=== PATIENT | male | born 2000 | race Caucasian/White ===

== ENCOUNTER 2021-02-15 13:09 | Emergency (ER) | payer BC ==
[2021-02-15 13:47] VITALS: TEMP 98.6
[2021-02-15 15:44] LABS: Appearance,Urine Clear (Clear); Bilirubin,Urine Negative (Negative); Blood,Urine Negative (Negative); Color,Urine Yellow; Glucose,Urine (UA) Negative (Negative); Ketones,Urine Negative (Negative); Leukocyte Esterase,Urine Negative (Negative); Nitrite,Urine Negative (Negative); PH, Urine 5.5 (5.0-8.0); Protein,Urine Negative (Negative); Specific Gravity,Urine 1.022 (1.001-1.035); Urobilinogen,Urine <2.0 mg/dL (<2.0)
--- NOTE | 2021-02-15 17:26 | US ---
EXAMINATION TYPE: US bladder DATE OF EXAM: 02/15/2021 COMPARISON: NONE CLINICAL HISTORY: testicular pain. Generalized pelvic pain. EXAM MEASUREMENTS: Bladder: anechoic, moderately distended Color Doppler performed to assess ureteral jets. Bilateral Jets seen IMPRESSION: No evidence of a bladder mass. There are bilateral ureteral jets in the urinary bladder.
--- NOTE | 2021-02-15 17:29 | US ---
EXAMINATION TYPE: US scrotum with doppler. Grayscale and color Doppler Duplex imaging performed of arias sullivan scrotum. DATE OF EXAM: 02/15/2021 COMPARISON: NONE CLINICAL HISTORY: testicular pain. Patient states lifting something heavy and feeling a pull. No swe lling. EXAM MEASUREMENTS: TESTICLES: Right Testicle: 2.7 x 3.6 x 2.1 cm Left Testicle: 3.6 x 2.7 x 2.0 cm EPIDIDYMIS HEAD: Right Epididymis: 1.2 x 1.1 x 1.2 cm Left Epididymis: 1.1 x 1.1 x 0.7 cm Doppler performed to assess for testicular vascularity; good bilateral color flow and waveforms are s een. There is no evidence of testicular torsion. Presence of hydroceles: no Presence of varicoceles: no Right epididymal cyst = 0.6 x 0.6 x 0.6 cm. Left epididymal cyst = 0.9 x 0.7 x 0.6 cm IMPRESSION: There are bilateral epididymal cysts. No evidence of testicular torsion or mass. No free fluid.
--- NOTE | 2021-02-15 17:36 | ED ---
Abdominal Pain HPI - General Chief Complaint: Abdominal Pain Stated Complaint: Male Time Seen by Provider: 02/15/21 13:45 Source: patient Mode of arrival: ambulatory Limitations: no limitations - History of Present Illness Initial Comments: 20-year-old male presents to the emergency room with reported right-sided scrotal pain. Patient states he has been having some suprapubic and testicular pain over the past month. He has been following with his primary care doctor diagnosed him with a muscle strain. States he will occasionally take Motrin Ty lenol for pain. Patient was lifting a box today when he had sudden onset of right-sided testicular pain. He does not take any medications for her symptoms became into the emergency room for further evaluation. He denies concern for sexually transmitted infections. No fevers or chills. No urinary complaints to include dysuria, hematuria or voiding. Denies change in his bladder habits. No other alleviating, precipitating or modifying factors - Related Data Home Medications Medication Instructions Recorded Confirmed Atorvastatin [Lipitor] 40 mg PO HS 02/15/21 02/15/21 Fexofenadine/Pseudoephedrine 1 tab PO DAILY PRN 02/15/21 02/15/21 [Carrie-D 24 Hour Tablet] Lisinopril [Prinivil] 5 mg PO HS 02/15/21 02/15/21 Phentermine HCl [Adipex-P] 37.5 mg PO DAILY 02/15/21 02/15/21 Allergies Allergy/AdvReac Type Severity Reaction Status Date / Time Penicillins Allergy Unknown Verified 02/15/21 17:22 Childhood Review of Systems ROS Statement: Those systems with pertinent positive or pertinent negative responses have been documented in the HPI. ROS Other: All systems not noted in ROS Statement are negative. Past Medical History Past Medical History: Hyperlipidemia, Hypertension Past Surgical History: Tonsillectomy Past Psychological History: No Psychological Hx Reported Smoking Status: Never smoker Past Alcohol Use History: None Reported Past Drug Use History: None Reported General Exam Limitations: no limitations General appearance: alert, in no apparent distress Head exam: Present: atraumatic, normocephalic, normal inspection Eye exam: Present: normal appearance, PERRL, EOMI. Absent: scleral icterus, conjunctival injection, periorbital swelling ENT exam: Present: normal exam, mucous membranes moist Neck exam: Present: normal inspection. Absent: tenderness, meningismus, lymphadenopathy Respiratory exam: Present: normal lung sounds bilaterally. Absent: respiratory distress, wheezes, rales, rhonchi, stridor Cardiovascular Exam: Present: regular rate, normal rhythm, normal heart sounds. Absent: systolic murmur, diastolic murmur, rubs, gallop, clicks GI/Abdominal exam: Present: soft, normal bowel sounds. Absent: distended, tenderness, guarding, rebound, rigid exam: Present: normal inspection. Absent: testicular tenderness, urethral discharge, scrotal swelling, vertical testicular lie, circumcision Extremities exam: Present: normal inspection, full ROM, normal capillary refill. Absent: tenderness, pedal edema, joint swelling, calf tenderness Back exam: Present: normal inspection Neurological exam: Present: alert, oriented X3, CN II-XII intact Psychiatric exam: Present: normal affect, normal mood Skin exam: Present: warm, dry, intact, normal color. Absent: rash Course Vital Signs 02/15/21 02/15/21 13:44 17:55 Temperature 98.6 F Pulse Rate 78 76 Respiratory 18 20 Rate Blood Pressure 128/79 160/89 O2 Sat by Pulse 98 99 Oximetry Medical Decision Making - Medical Decision Making Upon arrival the patient is placed in room 16. A thorough history and physical exam was performed. He is offered something for pain control however he refuses. He does provide a urine sample. Patient is pain-free throughout my evaluation. He does have a testicular and bladder ultrasound performed which demonstrates bilateral epididymal cysts with no evidence of testicular torsion or mass. Results are discussed with the patient. He continues to remain pain- free. Patient will be discharged home at this time and is to follow-up with his primary care physician. May need referral to a urologist if his pain persists. Patient understood this. Instructed to take Motrin and Tylenol for pain control. Return for any new or worsening symptoms per patient was discharged with stable condition - Lab Data Lab Results 02/15/21 Range/Units 15:27 Urine Color Yellow Urine Appearance Clear (Clear) Urine pH 5.5 (5.0-8.0) Ur Specific Kelly 1.022 (1.001-1.035) Urine Protein Negative (Negative) Urine Glucose (UA) Negative (Negative) Urine Ketones Negative (Negative) Urine Blood Negative (Negative) Urine Nitrite Negative (Negative) Urine Bilirubin Negative (Negative) Urine Urobilinogen <2.0 (<2.0) mg/dL Ur Leukocyte Esterase Negative (Negative) Disposition Clinical Impression: Testicular pain, right, Epididymal cyst Disposition: HOME SELF-CARE Condition: Stable Instructions (If sedation given, give patient instructions): Testicle Pain (ED) Additional Instructions: Please follow up with your PCP in 2-4 days for re-evaluation. You may need to see a urologist. Take Motrin and tylenol alternating for pain. Return to the ED for any new or worsening symptoms. Is patient prescribed a controlled substance at d/c from ED?: No Referrals: De Olson DO [Primary Care Provider] - 1-2 days Time of Disposition: 17:35
[2021-02-15 17:57] VITALS: BP 160/89; PULSE 76; RESP 20
== END 2021-02-15 17:56 | disposition home or self-care (01) ==
LOC: EC 13:09
DX: N50.3 Cyst of epididymis (principal); I10 Essential (primary) hypertension; E78.5 Hyperlipidemia, unspecified; Z79.899 Other long term (current) drug therapy; Z88.0 Allergy status to penicillin
CPT/HCPCS: 76857; 76870; 81003; 93975; 99284

== ENCOUNTER 2022-09-23 09:32 | Emergency (ER) | payer BC ==
[2022-09-23 09:46] VITALS: PULSE 72; TEMP 97.9
--- NOTE | 2022-09-23 10:26 | ED ---
ENT HPI - General Chief complaint: ENT Stated complaint: Rt ear pain Time Seen by Provider: 09/23/22 09:57 Source: patient, RN notes reviewed, old records reviewed Mode of arrival: ambulatory Limitations: no limitations - History of Present Illness Initial comments: This is a well-appearing 22-year-old male presents ambulatory with complaints of right ear pain. Patient states that 2 weeks ago he felt a pop in his right ear. He went to urgent care on Monday and they prescribed him antibiotics for a left ear infection. He states that he was also given steroids which she still has 1 more day of each. He states that he has a ring in his right ear which prompted him to come to the emergency room its been keeping him up at night. Denies any discharge. No fevers. MD complaint: ear pain (right) -: days(s) (2) Location: R ear Severity scale (1-10): 4 Quality: constant, other (ringing) Consistency: constant Associated Symptoms: tinnitus - Related Data Home Medications Medication Instructions Recorded Confirmed Atorvastatin [Lipitor] 40 mg PO HS 02/15/21 02/15/21 Fexofenadine/Pseudoephedrine 1 tab PO DAILY PRN 02/15/21 02/15/21 [Carrie-D 24 Hour Tablet] Phentermine HCl [Adipex-P] 37.5 mg PO DAILY 02/15/21 02/15/21 lisinopriL [Prinivil] 5 mg PO HS 02/15/21 02/15/21 Allergies Allergy/AdvReac Type Severity Reaction Status Date / Time Penicillins Allergy Unknown Verified 09/23/22 09:46 Childhood Review of Systems ROS Statement: Those systems with pertinent positive or pertinent negative responses have been documented in the HPI. ROS Other: All systems not noted in ROS Statement are negative. Past Medical History Past Medical History: Hyperlipidemia, Hypertension History of Any Multi-Drug Resistant Organisms: None Reported Past Surgical History: Tonsillectomy Past Psychological History: No Psychological Hx Reported Smoking Status: Never smoker Past Alcohol Use History: None Reported Past Drug Use History: None Reported General Exam Limitations: no limitations General appearance: alert, in no apparent distress Head exam: Present: atraumatic Eye exam: Present: normal appearance. Absent: scleral icterus, conjunctival injection, periorbital swelling, periorbital tenderness ENT exam: Present: normal oropharynx, mucous membranes moist, TM's normal bilaterally, normal external ear exam Neck exam: Present: full ROM. Absent: tenderness, meningismus, lymphadenopathy Respiratory exam: Absent: respiratory distress, accessory muscle use Cardiovascular Exam: Present: regular rate GI/Abdominal exam: Present: soft Neurological exam: Present: alert, oriented X3 Psychiatric exam: Present: normal affect, normal mood Skin exam: Present: warm, dry, normal color. Absent: cyanosis, diaphoretic, pet echiae, pallor Course Vital Signs 09/23/22 09/23/22 09:43 10:37 Temperature 97.9 F Pulse Rate 72 Respiratory 18 14 Rate Blood Pressure 156/95 136/72 O2 Sat by Pulse 100 100 Oximetry Medical Decision Making - Medical Decision Making Tympanic membranes appear intact with no evidence of otitis or effusion. Patient is afebrile. No lymphadenopathy. No hearing loss. Denies sore throat. No headaches. Currently taking antibiotics and steroids prescribed at urgent care. Patient instructed to continue these medications and follow up with ENT for complaints of continued tinnitus. Patient is agreeable to this plan of care. Case discussed with Dr. Cornell. Was pt. sent in by a medical professional or institution (, PA, [employer], urgent care, hospital, or jail...) When possible be specific @ -[No] Did you speak to anyone other than the patient for history (EMS, parent, family, police, friend...)? What history was obtained from this source @ -[No] Did you review nursing and triage notes (agree or disagree)? Why? @ -[I reviewed and agree with nursing and triage notes] Were old charts reviewed (outside hosp., previous admission, EMS record, old EKG, old radiological studies, urgent care reports/EKG's, jail records)? Report findings @ -[No old charts were reviewed] Differential Diagnosis (chest pain, altered mental status, abdominal pain women, abdominal pain men, vaginal bleeding, weakness, fever, dyspnea, syncope, headache, dizziness, GI bleed, back pain, seizure, CVA, palpatations, mental health, musculoskeletal)? @ -Otitis media, zoster, TMJ, hypertension, salicylate toxicity, foreign body, head trauma, this is not a complete list EKG interpreted by me (3pts min.). @ -n/a X-rays interpreted by me (1pt min.). @ -[None done] CT interpreted by me (1pt min.). @ -[None done] U/S interpreted by me (1pt. min.). @ -[None done] What testing was considered but not performed or refused? (CT, X-rays, U/S, labs)? Why? @ -CT was considered however there is no evidence of abscess or lymphadenitis or cellulitis What meds were considered but not given or refused? Why? @ -Patient is currently taking antibiotics and steroids prescribed from urgent care Did you discuss the management of the patient with other professionals (professionals i.e. , PA, [employer], lab, RT, psych nurse, hospice social worker, wall washer, teacher, jail officer, major case detective)? Give summary @ -[No] Was smoking cessation discussed for >3mins.? @ -[No] Was critical care preformed (if so, how long)? @ -[No] Were there social determinants of health that impacted care today? How? (Homelessness, low income, unemployed, alcoholism, drug addiction, transportation, low edu. Level, literacy, decrease access to med. care, fpc, rehab)? @ -[No] Was there de-escalation of care discussed even if they declined (Discuss DNR or withdrawal of care, Hospice)? DNR status @ -[No] What co-morbidities impacted this encounter? (DM, HTN, Smoking, COPD, CAD, Cancer, CVA, ARF, Chemo, Hep., AIDS, mental health diagnosis, sleep apnea, morbid obesity)? @ -[None] Was patient admitted / discharged? Hospital course, mention meds given and route, prescriptions, significant lab abnormalities, going to OR and other pertinent info. @ -discharged Undiagnosed new problem with uncertain prognosis? @ -[No] Drug Therapy requiring intensive monitoring for toxicity (Heparin, Nitro, Insulin, Cardizem)? @ -[No] Were any procedures done? @ -[No] Diagnosis/symptom? @ -Ear pain Acute, or Chronic, or Acute on Chronic? @ -Acute Uncomplicated (without systemic symptoms) or Complicated (systemic symptoms)? @ -Uncomplicated Side effects of treatment? @ -[No] Exacerbation, Progression, or Severe Exacerbation? @ -[No] Poses a threat to life or bodily function? How? (Chest pain, [place], [place], pneumonia, PE, COPD, DKA, ARF, appy, cholecystitis, CVA, Diverticulitis, Homicidal, Suicidal, threat to staff... and all critical care pts) @ -[No] Disposition Clinical Impression: Ear pain, right Disposition: HOME SELF-CARE Condition: Good Instructions (If sedation given, give patient instructions): Earache (ED) Additional Instructions: Continue taking steroids and antibiotics as prescribed. Follow-up with ENT doctor on Monday. Tylenol as needed for any pain or discomfort. You can also try antihistamines like Zyrtec or Claritin Is patient prescribed a controlled substance at d/c from ED?: No Referrals: Basim Chinchilla MD [Primary Care Provider] - 1-2 days Time of Disposition: 10:17
[2022-09-23 10:38] VITALS: BP 136/72; RESP 14
== END 2022-09-23 10:38 | disposition home or self-care (01) ==
LOC: EC 09:32
DX: H92.01 Otalgia, right ear (principal); I10 Essential (primary) hypertension; E78.5 Hyperlipidemia, unspecified; Z88.0 Allergy status to penicillin; Z79.899 Other long term (current) drug therapy
CPT/HCPCS: 99282

== ENCOUNTER → 2022-11-24 | Outpatient (CLI) | payer BC ==
--- NOTE | 2022-11-25 08:20 | CT ---
EXAMINATION TYPE: CT brain wo/w con DATE OF EXAM: 11/24/2022 COMPARISON: None HISTORY: Rt sided ear pain, ringing and jaw pain. CT DLP: combined DLP 3720.8mGycm CONTRAST: CT scan of the head is performed without and with IV Contrast, patient injected with 100 mL of Isovue 300. Unenhanced followed by contrast enhanced CT of the brain is submitted for evaluation. The ventricles are midline. There is no evidence for intracranial hemorrhage or extra-axial collection. No mass e ffects are identified. Visualized bony calvarium is intact. Contrast is administered and no enhanci ng lesions are detected. No pathologic enhancement is identified. If symptoms persist consider MRI. IMPRESSION: Normal CT brain.
--- NOTE | 2022-11-25 08:28 | CT ---
EXAMINATION TYPE: CT soft tissue neck wo/w con DATE OF EXAM: 11/24/2022 COMPARISON: None HISTORY: Rt sided ear pain, ringing and jaw pain. CT DLP: Combined DLP 3720.8 mGycm CONTRAST: CT scan of the neck is performed without and with IV Contrast, patient injected with mL of Isovue [address] of the neck was performed from the skull base through the lung apices. AIRWAY: The supraglottic, glottic, and subglottic portions of the airway appear patent and free of mass. SALIVARY GLANDS: The submandibular and parotid glands are free of mass or inflammatory process. THYROID GLAND: No nodules or masses seen. LYMPH NODES: No adenopathy seen greater than 1cm. LUNG APICES: No nodule or mass is seen. OTHER: Vascular structures are patent. No significant degenerative change of the cervical spine. N o abscess seen. Mastoid air cells are well-aerated. IMPRESSION: 1. No significant abnormality to the patient's symptoms.
== END | disposition home or self-care (01) ==
LOC: RADCTMAIN 15:02
PROVIDERS: ATTEND Otolaryngology
DX: G44.89 Other headache syndrome (principal); H92.01 Otalgia, right ear; R68.84 Jaw pain
CPT/HCPCS: 70492; 70470; Q9967

== ENCOUNTER 2023-11-28 17:49 | Emergency (ER) | payer BC ==
[2023-11-28 18:30] VITALS: RESP 18
--- NOTE | 2023-11-28 18:37 | ED ---
Upper Extremity HPI - General Source: patient, RN notes reviewed Mode of arrival: ambulatory Limitations: no limitations <Narcisa Lehman - Last Filed: 11/28/23 18:36> - General Source: RN notes reviewed <Jania Talamantes - Last Filed: 11/28/23 21:25> - General Chief Complaint: Extremity Injury, Upper Stated Complaint: finger injury Time Seen by Provider: 11/28/23 18:00 - History of Present Illness Initial Comments: Lianet noteis a 23-year-old male presents emergency department chief complaint of a laceration to his proximal left third digit. Sensation that his finger with a hedge tremor approximately 30 minutes before emergency department arrival. States that his last tetanus vaccine was a few months ago. Denies paresthesias or loss of movement of the finger. (Narcisa Lehman) 23-year-old male presenting to the ER with chief complaint of laceration to left third digit. States he was sliced by a shingle trimmer 30 minutes prior to arrival in the ER. Denies numbness, tingling. Denies blunt injury to the finger. Last tetanus was 3 months ago. No other complaints at this time. (Jania Talamantes) - Related Data Home Medications Medication Instructions Recorded Confirmed Atorvastatin [Lipitor] 40 mg PO HS 02/15/21 02/15/21 Fexofenadine/Pseudoephedrine 1 tab PO DAILY PRN 02/15/21 02/15/21 [Carrie-D 24 Hour Tablet] Phentermine HCl [Adipex-P] 37.5 mg PO DAILY 02/15/21 02/15/21 lisinopriL [Prinivil] 5 mg PO HS 02/15/21 02/15/21 Previous Rx's Medication Instructions Recorded Sulfamethox-Tmp 800-160Mg [Bactrim 1 each PO Q12HR 5 Days #10 tab 11/28/23 Ds] Allergies Allergy/AdvReac Type Severity Reaction Status Date / Time Penicillins Allergy Unknown Verified 09/23/22 09:46 Childhood Review of Systems ROS Other: All systems not noted in ROS Statement are negative. <Narcisa Lehman - Last Filed: 11/28/23 18:36> ROS Other: All systems not noted in ROS Statement are negative. <Jania Talamantes - Last Filed: 11/28/23 21:25> ROS Statement: Those systems with pertinent positive or pertinent negative responses have been documented in the HPI. Past Medical History Past Medical History: Hyperlipidemia, Hypertension History of Any Multi-Drug Resistant Organisms: None Reported Past Surgical History: Tonsillectomy Past Psychological History: No Psychological Hx Reported Smoking Status: Never smoker Past Alcohol Use History: None Reported Past Drug Use History: None Reported <Narcisa Lehman - Last Filed: 11/28/23 18:36> General Exam Limitations: no limitations <Narcisa Lehman - Last Filed: 11/28/23 18:36> General appearance: alert, in no apparent distress Head exam: Present: atraumatic, normocephalic, normal inspection Eye exam: Present: normal appearance, PERRL, EOMI. Absent: scleral icterus, conjunctival injection, periorbital swelling ENT exam: Present: normal exam, mucous membranes moist Neck exam: Present: normal inspection. Absent: tenderness, meningismus, lymphadenopathy Respiratory exam: Present: normal lung sounds bilaterally. Absent: respiratory distress, wheezes, rales, rhonchi, stridor GI/Abdominal exam: Present: soft, normal bowel sounds. Absent: distended, tenderness, guarding, rebound, rigid Left Forearm Wrist exam: Present: normal inspection, full ROM. Absent: tenderness, swelling Hand Wrist exam: Present: full ROM, laceration (2 cm jagged superficial laceration on ventral aspect of proximal left third digit. Minimal active bleeding. No tenderness to palpation. Full range of motion and sensation. Cap refill less than 2 seconds.). Absent: normal inspection, tenderness, swelling <Jania Talamantes - Last Filed: 11/28/23 21:25> - General Exam Comments Initial Comments: Visual Physical Exam Vital signs reviewed General: Well-appearing, nontoxic, no acute distress. Head: Normocephalic, atraumatic Eyes: PERRLA, EOMI ENT: Airway patent Chest: Nonlabored breathing Skin: No visual rash, normal skin tone Neuro: Alert and oriented 3 Musculoskeletal: No gross abnormalities (Stieler,Narcisa) Course Vital Signs 11/28/23 11/28/23 18:27 21:05 Temperature 98.7 F 98.9 F Pulse Rate 74 66 Respiratory 18 18 Rate Blood Pressure 144/79 153/96 O2 Sat by Pulse 96 98 Oximetry Procedures - Laceration Laceration #1 Consent Obtained: verbal consent Indication: laceration Site: hand Description: flap Depth: simple, single layer Pre-repair: wound explored, irrigated extensively, deep structures intact Patient Tolerated Procedure: well, no complications <Jania Talamantes - Last Filed: 11/28/23 21:25> - Laceration Laceration #1 Additional Comments: Wound was thoroughly cleaned. Skin adhesive and steri strips applied. wound is well approximated. neurovasculalry intact s/p procedure (Jania Talamantes) Medical Decision Making <Narcisa Lehman - Last Filed: 11/28/23 18:36> <Jania Talamantes - Last Filed: 11/28/23 21:25> - Medical Decision Making I completed the quick note portion of this chart signed Narcisa Lehman PA-C (Narcisa Lehman) Was pt. sent in by a medical professional or institution ([facility], PUMP ASSEMBLER, urgent care, hospital, or senior care...) When possible be specific @ -No Did you speak to anyone other than the patient for history (EMS, parent, family, police, friend...)? What history was obtained from this source @ -No Did you review nursing and triage notes (agree or disagree)? Why? @ -I reviewed and agree with nursing and triage notes Were old charts reviewed (outside hosp., previous admission, EMS record, old EKG, old radiological studies, urgent care reports/EKG's, senior care records)? Report findings @ -No old charts were reviewed Differential Diagnosis (chest pain, altered mental status, abdominal pain women, abdominal pain men, vaginal bleeding, weakness, fever, dyspnea, syncope, headache, dizziness, GI bleed, back pain, seizure, CVA, palpatations, mental health, musculoskeletal)? @ -Differential Musculoskeletal Laceration, muscular strain, contusion, ligament sprain, fracture, arthritis, septic arthritis, bursitis, cellulitis, muscle spasm, nerve compression, DVT, arterial occlusion, herpes zoster, electrolyte abnormality, tumor.... This is not meant to be in all inclusive list EKG interpreted by me (3pts min.). @ -None X-rays interpreted by me (1pt min.). @ -None done CT interpreted by me (1pt min.). @ -None done U/S interpreted by me (1pt. min.). @ -None done What testing was considered but not performed or refused? (CT, X-rays, U/S, labs)? Why? @ -X-ray not performed due to laceration is superficial, no blunt injury, full range of motion and no tenderness to palpation What meds were considered but not given or refused? Why? @ -None Did you discuss the management of the patient with other professionals (professionals i.e. Dr., PA, PUMP ASSEMBLER, lab, RT, psych nurse, social media developer, terminal worker, teacher, tactical intelligence officer, case management director)? Give summary @ -No Was smoking cessation discussed for >3mins.? @ -No Was critical care preformed (if so, how long)? @ -No Were there social determinants of health that impacted care today? How? (Homelessness, low income, unemployed, alcoholism, drug addiction, transportation, low edu. Level, literacy, decrease access to med. care, residential, rehab)? @ -No Was there de-escalation of care discussed even if they declined (Discuss DNR or withdrawal of care, Hospice)? DNR status @ -No What co-morbidities impacted this encounter? (DM, HTN, Smoking, COPD, CAD, Cancer, CVA, ARF, Chemo, Hep., AIDS, mental health diagnosis, sleep apnea, morbid obesity)? @ -None Was patient admitted / discharged? Hospital course, mention meds given and route, prescriptions, significant lab abnormalities, going to OR and other pertinent info. @ -Patient was discharged. Patient was seen and evaluated for laceration third digit of left hand. Patient is neurovascularly intact. Wound is thoroughly irrigated and well-approximated with skin adhesive and Steri-Strips. Bactrim prescribed for bacterial prophylaxis. Wound care discussed in detail with patient. Strict return/alarm symptoms discussed with patient in detail and he shows understanding and agrees to plan. Case discussed with my attending Dr. Cornell. Patient discharged in stable condition. Undiagnosed new problem with uncertain prognosis? @ -No Drug Therapy requiring intensive monitoring for toxicity (Heparin, Nitro, Insulin, Cardizem)? @ -No Were any procedures done? @ -Wound was irrigated, skin adhesive and Steri-Strips applied for wound approximation Diagnosis/symptom? @ -Laceration of left third digit Acute, or Chronic, or Acute on Chronic? @ -Acute Uncomplicated (without systemic symptoms) or Complicated (systemic symptoms)? @ -Uncomplicated Side effects of treatment? @ -No Exacerbation, Progression, or Severe Exacerbation? @ -No Poses a threat to life or bodily function? How? (Chest pain, [place], [place], pneumonia, PE, COPD, DKA, ARF, appy, cholecystitis, CVA, Diverticulitis, Homicidal, Suicidal, threat to staff... and all critical care pts) @ -No (Jania Talamantes) Disposition <Narcisa Lehman - Last Filed: 11/28/23 18:36> Is patient prescribed a controlled substance at d/c from ED?: No Time of Disposition: 20:56 <Jania Talamantes - Last Filed: 11/28/23 21:25> Clinical Impression: Laceration of left hand Disposition: HOME SELF-CARE Condition: Stable Instructions (If sedation given, give patient instructions): Finger Laceration (ED) Additional Instructions: Please return to the Emergency Department if symptoms worsen or any other concerns. Prescriptions: Sulfamethox-Tmp 800-160Mg [Bactrim Ds] 1 each PO Q12HR 5 Days #10 tab Referrals: Basim Chinchilla MD [Primary Care Provider] - 1-2 days
[2023-11-28 21:07] VITALS: BP 153/96; PULSE 66; TEMP 98.9
== END 2023-11-28 21:06 | disposition home or self-care (01) ==
LOC: EC 17:49
DX: S61.213A Laceration without foreign body of left middle finger without damage to nail, initial encounter (principal); Z88.0 Allergy status to penicillin; W29.3XXA Contact with powered garden and outdoor hand tools and machinery, initial encounter
CPT/HCPCS: 12001; 99283

== ENCOUNTER 2024-09-07 18:11 | Emergency (ER) | payer BC ==
[2024-09-07 18:39] VITALS: RESP 17
--- NOTE | 2024-09-07 19:42 | ED ---
Back Pain HPI - General Chief Complaint: Back Pain/Injury Stated Complaint: Low back pain Time Seen by Provider: 09/07/24 19:28 Source: patient, RN notes reviewed Limitations: no limitations - History of Present Illness Initial Comments: This is a 24-year-old male presenting with lower back pain (6/10) since 1300 today. Patient states he was picking up an item when his back "seized" with ongoing cramping that worsens with movement (9/10). Denies radiculopathy, paresthesia, saddle paresthesia, urinary incontinence/retention. Endorses use of Tylenol at 1400 with minimal relief. Denies direct trauma or fall. Denies significant history of lower back pain/issues. MD Complaint: back pain, back injury Time: 13:00 Similar Symptoms Previously: No Place: home Radiation: none Severity scale (1-10): 9 Consistency: constant Improves With: immobilization Worsens With: movement, walking Context: bending Associated Symptoms: denies other symptoms Treatments Prior to Arrival: acetaminophen - Related Data Home Medications Medication Instructions Recorded Confirmed Atorvastatin [Lipitor] 40 mg PO HS 02/15/21 02/15/21 Fexofenadine/Pseudoephedrine 1 tab PO DAILY PRN 02/15/21 02/15/21 [Carrie-D 24 Hour Tablet] Phentermine HCl [Adipex-P] 37.5 mg PO DAILY 02/15/21 02/15/21 lisinopriL [Prinivil] 5 mg PO HS 02/15/21 02/15/21 Previous Rx's Medication Instructions Recorded Sulfamethox-Tmp 800-160Mg [Bactrim 1 each PO Q12HR 5 Days #10 tab 11/28/23 Ds] Cyclobenzaprine [Flexeril] 10 mg PO TID PRN #15 tab 09/07/24 Ibuprofen [Motrin] 800 mg PO Q6HR #30 tab 09/07/24 predniSONE 50 mg PO DAILY #5 tab 09/07/24 Allergies Allergy/AdvReac Type Severity Reaction Status Date / Time Penicillins Allergy Unknown Verified 09/07/24 18:38 Childhood Review of Systems ROS Statement: Those systems with pertinent positive or pertinent negative responses have been documented in the HPI. ROS Other: All systems not noted in ROS Statement are negative. Past Medical History Past Medical History: Hyperlipidemia, Hypertension History of Any Multi-Drug Resistant Organisms: None Reported Past Surgical History: Tonsillectomy Past Psychological History: No Psychological Hx Reported Smoking Status: Never smoker Past Alcohol Use History: None Reported Past Drug Use History: None Reported General Exam Limitations: no limitations General appearance: alert, in distress Head exam: Present: atraumatic, normocephalic, normal inspection Eye exam: Present: normal appearance, PERRL, EOMI. Absent: scleral icterus, conjunctival injection, periorbital swelling ENT exam: Present: normal exam, mucous membranes moist Neck exam: Present: normal inspection. Absent: tenderness, meningismus, lymphadenopathy Respiratory exam: Present: normal lung sounds bilaterally. Absent: respiratory distress, wheezes, rales, rhonchi, stridor Cardiovascular Exam: Present: regular rate, normal rhythm, normal heart sounds. Absent: systolic murmur, diastolic murmur, rubs, gallop, clicks GI/Abdominal exam: Present: soft, normal bowel sounds. Absent: distended, tenderness, guarding, rebound, rigid Extremities exam: Present: normal inspection, full ROM, normal capillary refill, other (Straight leg raise: Patient unable to raise right leg due to pain. BLE distal neurovascular motor function intact. Posterior tibialis pulse +2 bilaterally). Absent: tenderness, pedal edema, joint swelling, calf tenderness Back exam: Present: muscle spasm, paraspinal tenderness (Positive bilateral para lumbar tenderness and muscle spasm, left worse than right). Absent: vertebral tenderness Neurological exam: Present: alert, oriented X3, CN II-XII intact Psychiatric exam: Present: normal affect, normal mood Skin exam: Present: warm, dry, intact, normal color. Absent: rash Course Vital Signs 09/07/24 18:33 Temperature 98.4 F Pulse Rate 76 Respiratory 17 Rate Blood Pressure 144/94 O2 Sat by Pulse 100 Oximetry Medical Decision Making - Medical Decision Making Was pt. sent in by a medical professional or institution (, PA, SCHOOL ADMINISTRATOR, urgent care, hospital, or jail...) When possible be specific @ -[No] Did you speak to anyone other than the patient for history (EMS, parent, family, police, friend...)? What history was obtained from this source @ -[No] Did you review nursing and triage notes (agree or disagree)? Why? @ -[I reviewed and agree with nursing and triage notes] Were old charts reviewed (outside hosp., previous admission, EMS record, old EKG, old radiological studies, urgent care reports/EKG's, jail records)? Report findings @ -[No old charts were reviewed] Differential Diagnosis (chest pain, altered mental status, abdominal pain women, abdominal pain men, vaginal bleeding, weakness, fever, dyspnea, syncope, headache, dizziness, GI bleed, back pain, seizure, CVA, palpatations, mental health, musculoskeletal)? @ -Differential Back Pain: Strain, zoster, cauda equina syndrome, epidural abscess, vertebral osteomyelitis, discitis, fracture, subluxation, disc herniation, DJD, spinal stenosis, dissection, AAA, pancreatitis, peptic ulcer disease, pyelonephritis, kidney stone, this is not meant to be an all-inclusive list. EKG interpreted by me (3pts min.). @ -Not done X-rays interpreted by me (1pt min.). @ -[None done] CT interpreted by me (1pt min.). @ -[None done] U/S interpreted by me (1pt. min.). @ -[None done] What testing was considered but not performed or refused? (CT, X-rays, U/S, labs)? Why? @ -[None] What meds were considered but not given or refused? Why? @ -[None] Did you discuss the management of the patient with other professionals (professionals i.e. , PA, SCHOOL ADMINISTRATOR, lab, RT, psych nurse, social services counselor, engraver picture, teacher, administrative officer, child support case officer)? Give summary @ -[No] Was smoking cessation discussed for >3mins.? @ -[No] Was critical care preformed (if so, how long)? @ -[No] Were there social determinants of health that impacted care today? How? (Homelessness, low income, unemployed, alcoholism, drug addiction, transportation, low edu. Level, literacy, decrease access to med. care, detention, rehab)? @ -[No] Was there de-escalation of care discussed even if they declined (Discuss DNR or withdrawal of care, Hospice)? DNR status @ -[No] What co-morbidities impacted this encounter? (DM, HTN, Smoking, COPD, CAD, Cancer, CVA, ARF, Chemo, Hep., AIDS, mental health diagnosis, sleep apnea, morbid obesity)? @ -[None] Was patient admitted / discharged? Hospital course, mention meds given and route, prescriptions, significant lab abnormalities, going to OR and other pertinent info. @ -[hospital course] Undiagnosed new problem with uncertain prognosis? @ -[No] Drug Therapy requiring intensive monitoring for toxicity (Heparin, Nitro, Insulin, Cardizem)? @ -[No] Were any procedures done? @ -[No] Diagnosis/symptom? @ -[default] Acute, or Chronic, or Acute on Chronic? @ -Acute Uncomplicated (without systemic symptoms) or Complicated (systemic symptoms)? @ -Uncomplicated Side effects of treatment? @ -[No] Exacerbation, Progression, or Severe Exacerbation? @ -[No] Poses a threat to life or bodily function? How? (Chest pain, [place], [place], pneumonia, PE, COPD, DKA, ARF, appy, cholecystitis, CVA, Diverticulitis, Homicidal, Suicidal, threat to staff... and all critical care pts) @ -[No] Disposition Clinical Impression: Mechanical back pain, Strain of lumbar region Disposition: HOME SELF-CARE Condition: Good Instructions (If sedation given, give patient instructions): Acute Low Back Pain (ED) Additional Instructions: Gentle massage, warm compresses and gentle stretching of affected region. Follow-up with orthospine for any ongoing pain. Prescriptions: Cyclobenzaprine [Flexeril] 10 mg PO TID PRN #15 tab PRN Reason: Muscle Spasm Ibuprofen [Motrin] 800 mg PO Q6HR #30 tab predniSONE 50 mg PO DAILY #5 tab Is patient prescribed a controlled substance at d/c from ED?: No Referrals: Basim Chinchilla MD [Primary Care Provider] - 1-2 days Elaina Hernandez DO [Doctor of Osteopathic Medicine] - 1-2 days Time of Disposition: 22:02
[2024-09-07] MEDS: KETOROLAC 15 MG/ML 1 ML VIAL IVP STA (20:08)
--- NOTE | 2024-09-07 20:08 | XR ---
EXAMINATION TYPE: XR lumbar spine 2 or 3V DATE OF EXAM: 09/07/2024 7:51 PM COMPARISON: None CLINICAL INDICATION: Male, 24 years old with history of Severe low back pain; PHH, pain TECHNIQUE: XR lumbar spine 2 or 3V - Frontal, lateral and coned in L5-S1 lateral views of the spine. FINDINGS: No evidence of any acute osseous pathology. No evidence of loss of vertebral body height i s seen. There is normal alignment of the lumbar vertebral bodies. No significant degeneration changes throughout the spine. IMPRESSION: 1. No acute fracture. 2. Minimal disc degeneration. [facility], , 09/07/2024 8:06 PM
[2024-09-07] MEDS: ORPHENADRINE 30 MG/ML 2 ML VIAL IVP STA (20:09)
[2024-09-07] MEDS: methylPREDNISolone SOD SUCCI 125 MG/2 ML VIAL IV STA (20:11)
[2024-09-07 22:14] VITALS: BP 148/93; PULSE 98; TEMP 98.1
== END 2024-09-07 22:18 | disposition home or self-care (01) ==
LOC: EC 18:11
DX: S39.012A Strain of muscle, fascia and tendon of lower back, initial encounter (principal); Z88.0 Allergy status to penicillin; X58.XXXA Exposure to other specified factors, initial encounter
CPT/HCPCS: 72100; 99283; 96374; 96375 ×2; J2360; J1885; J2919

== ENCOUNTER 2024-09-18 11:14 | Emergency (ER) | payer BC ==
[2024-09-18 11:20] VITALS: RESP 18; TEMP 98.1
--- NOTE | 2024-09-18 11:37 | ED ---
Recheck HPI - General Chief Complaint: Recheck/Abnormal Lab/Rx Stated Complaint: facial numbness, fast heart rate Time Seen by Provider: 09/18/24 11:37 Source: patient, RN notes reviewed, old records reviewed Mode of arrival: ambulatory Limitations: no limitations - History of Present Illness Initial Comments: 24-year-old male with a past medical history significant of hypertension and hyperlipidemia presenting to the ER for evaluation of right-sided facial tingling and right upper extremity feels cold. Patient states on Monday he had similar complaints and decided to take his blood pressure. He found it to be 160/90. Patient was seen by PCP yesterday and started on amlodipine 5 mg daily. He did take this medication around 7 AM today. Patient states since Monday he has been having intermittent right-sided facial tingling and feeling his right upper extremity is "cold". Patient states he has been very anxious as he has been under "a ton of stress". He is not on any medications for anxiety. He denies any current dizziness, lightheadedness, headache, visual disturbances, nausea, vomiting, chest pain, shortness of breath or other complaints at this time. - Related Data Home Medications Medication Instructions Recorded Confirmed amLODIPine [Norvasc] 5 mg PO DAILY 09/18/24 09/18/24 Previous Rx's Medication Instructions Recorded Ibuprofen [Motrin] 800 mg PO Q8H PRN #30 tab 09/07/24 Allergies Allergy/AdvReac Type Severity Reaction Status Date / Time Penicillins Allergy Unknown Verified 09/18/24 12:54 Childhood Review of Systems ROS Statement: Those systems with pertinent positive or pertinent negative responses have been documented in the HPI. ROS Other: All systems not noted in ROS Statement are negative. Past Medical History Past Medical History: Hyperlipidemia, Hypertension History of Any Multi-Drug Resistant Organisms: None Reported Past Surgical History: Tonsillectomy Past Psychological History: No Psychological Hx Reported Smoking Status: Never smoker Past Alcohol Use History: None Reported Past Drug Use History: None Reported General Exam Limitations: no limitations General appearance: alert, in no apparent distress Head exam: Present: atraumatic, normocephalic, normal inspection Eye exam: Present: normal appearance, PERRL, EOMI. Absent: scleral icterus, conjunctival injection, periorbital swelling Pupils: Present: normal accommodation ENT exam: Present: normal exam, normal oropharynx, mucous membranes moist Respiratory exam: Present: normal lung sounds bilaterally. Absent: respiratory distress, wheezes, rales, rhonchi, stridor Cardiovascular Exam: Present: regular rate, normal rhythm, normal heart sounds. Absent: systolic murmur, diastolic murmur, rubs, gallop, clicks Extremities exam: Present: normal inspection, full ROM, normal capillary refill (2+ bilateral radial and PT pulses.). Absent: tenderness, pedal edema, joint swelling, calf tenderness Neurological exam: Present: alert, oriented X3, CN II-XII intact, normal gait, other (No acute neurological findings on exam. NIH 0.) Psychiatric exam: Present: anxious Skin exam: Present: warm, dry, intact, normal color. Absent: rash Course Vital Signs 09/18/24 09/18/24 11:16 13:01 Temperature 98.1 F Pulse Rate 98 88 Respiratory 18 18 Rate Blood Pressure 148/97 132/83 O2 Sat by Pulse 99 98 Oximetry Medical Decision Making - Medical Decision Making Was pt. sent in by a medical professional or institution ([facility], CREDIT PROCESSOR, urgent care, hospital, or fpc...) When possible be specific @ -No Did you speak to anyone other than the patient for history (EMS, parent, family, police, friend...)? What history was obtained from this source @ -No Did you review nursing and triage notes (agree or disagree)? Why? @ -I reviewed and agree with nursing and triage notes Were old charts reviewed (outside hosp., previous admission, EMS record, old EKG, old radiological studies, urgent care reports/EKG's, fpc records)? Report findings @ -No old charts were reviewed Differential Diagnosis (chest pain, altered mental status, abdominal pain women, abdominal pain men, vaginal bleeding, weakness, fever, dyspnea, syncope, headache, dizziness, GI bleed, back pain, seizure, CVA, palpatations, mental health, musculoskeletal)? @ -Neuralgia, CVA, TIA, arrhythmia, electrolyte abnormality, anxiety... This list is not meant to be all-inclusive EKG interpreted by me (3pts min.). @ -As above X-rays interpreted by me (1pt min.). @ -None done CT interpreted by me (1pt min.). @ -None done U/S interpreted by me (1pt. min.). @ -None done What testing was considered but not performed or refused? (CT, X-rays, U/S, labs)? Why? @ -CT brain was considered but not performed as no acute neurological findings on exam and symptoms are intermittent. No current symptoms. Patient is agreeable. What meds were considered but not given or refused? Why? @ -None Did you discuss the management of the patient with other professionals (professionals i.e. , PA, CREDIT PROCESSOR, lab, RT, psych nurse, child welfare social worker, still pump operator, teacher, safety security officer, foster care case manager)? Give summary @ -No Was smoking cessation discussed for >3mins.? @ -No Was critical care preformed (if so, how long)? @ -No Were there social determinants of health that impacted care today? How? (Homelessness, low income, unemployed, alcoholism, drug addiction, transportation, low edu. Level, literacy, decrease access to med. care, fpc, rehab)? @ -No Was there de-escalation of care discussed even if they declined (Discuss DNR or withdrawal of care, Hospice)? DNR status @ -No What co-morbidities impacted this encounter? (DM, HTN, Smoking, COPD, CAD, Cancer, CVA, ARF, Chemo, Hep., AIDS, mental health diagnosis, sleep apnea, morbid obesity)? @ -Anxiety/ HTN Was patient admitted / discharged? Hospital course, mention meds given and [place], prescriptions, significant lab abnormalities, going to OR and other pertinent info. @ -Discharge. 24-year-old male presented the ER for evaluation of intermittent right sided facial tingling and right upper extremity cold sensation. Upon rooming, history and physical exam completed. Vitals with in acceptable limits. Patient no signs of acute distress nontoxic-appearing. NIH 0. No acute neurological findings on exam. Patient denying current symptoms. Laboratory studies obtained unimpressive. EKG showing a sinus rhythm. Patient given symptomatic control in the emergency department with IV fluids. Upon reevaluation, patient resting comfortably in exam with no signs of acute distress. CT was offered to patient who refused. Patient will be discharged in stable condition with follow-up PCP. Symptoms possibly due to anxiety as patient reports numerous life stressors. Strict return parameters discussed. Patient discharged stable condition. Patient verbally stressed understanding agree with care plan. Case discussed with ED attending, Dr. Gonzalez. Undiagnosed new problem with uncertain prognosis? @ -No Drug Therapy requiring intensive monitoring for toxicity (Heparin, Nitro, Insulin, Cardizem)? @ -No Were any procedures done? @ -No Diagnosis/symptom? @ -Tingling of face Acute, or Chronic, or Acute on Chronic? @ -Acute Uncomplicated (without systemic symptoms) or Complicated (systemic symptoms)? @ -Uncomplicated Side effects of treatment? @ -No Exacerbation, Progression, or Severe Exacerbation? @ -No Poses a threat to life or bodily function? How? (Chest pain, USA, [place], pneumonia, PE, COPD, DKA, ARF, appy, cholecystitis, CVA, Diverticulitis, Homicidal, Suicidal, threat to staff... and all critical care pts) @ -No - Lab Data Result diagrams: 09/18/24 12:06 09/18/24 12:06 Lab Results 09/18/24 09/18/24 Range/Units 12:06 12:06 WBC 7.9 (3.8-10.6) k/uL RBC 5.97 H (4.30-5.90) m/uL Hgb 17.8 H (13.0-17.5) gm/dL Hct 53.3 H (39.0-53.0) % MCV 89.3 (80.0-100.0) fL MCH 29.9 (25.0-35.0) pg MCHC 33.5 (31.0-37.0) g/dL RDW 13.3 (11.5-15.5) % Plt Count 292 (150-450) k/uL MPV 7.4 Neutrophils % 75 % Lymphocytes % 17 % Monocytes % 5 % Eosinophils % 1 % Basophils % 1 % Neutrophils # 5.9 (1.3-7.7) k/uL Lymphocytes # 1.3 (1.0-4.8) k/uL Monocytes # 0.4 (0-1.0) k/uL Eosinophils # 0.1 (0-0.7) k/uL Basophils # 0.1 (0-0.2) k/uL Sodium 136 L (137-145) mmol/L Potassium 4.3 (3.5-5.1) mmol/L Chloride 100 (98-107) mmol/L Carbon Dioxide 26 (22-30) mmol/L Anion Gap 10 mmol/L BUN 15 (9-20) mg/dL Creatinine 0.83 (0.66-1.25) mg/dL Est GFR (CKD-EPI)AfAm >90 (>60 ml/min/1.73 sqM) Est GFR (CKD-EPI)NonAf >90 (>60 ml/min/1.73 sqM) Glucose 92 (74-99) mg/dL Calcium 9.5 (8.4-10.2) mg/dL Total Bilirubin 1.0 (0.2-1.3) mg/dL AST 27 (17-59) U/L ALT 39 (4-49) U/L Alkaline Phosphatase 49 (38-126) U/L Total Protein 7.2 (6.3-8.2) g/dL Albumin 4.5 (3.5-5.0) g/dL - EKG Data -: EKG Interpreted by Me EKG Comments: EKG taken at 11: 47 showing a sinus rhythm no ST segment elevations or depressions. Inverted T waves in lead III. Ventricular rate 80, CO interval 110, QRS duration 84, QT/QTc 335/370. Disposition Clinical Impression: Anxiety, Tingling of face Disposition: HOME SELF-CARE Condition: Stable Instructions (If sedation given, give patient instructions): Anxiety (ED) Additional Instructions: Follow-up with PCP. Continue taking amlodipine as prescribed. Return to the ER for any new or worsening concerns. Is patient prescribed a controlled substance at d/c from ED?: No Referrals: Basim Chinchilla MD [Primary Care Provider] - 1-2 days Time of Disposition: 12:48
[2024-09-18] MEDS: SODIUM CHLORIDE 0.9% 500 ML 500 ML IV ONE (12:05)
[2024-09-18 12:26] LABS: Basophils # (A) 0.1 k/uL (0-0.2); Basophils % (A) 1 %; Eosinophils # (A) 0.1 k/uL (0-0.7); Eosinophils % (A) 1 %; HCT 53.3 % (39.0-53.0); HGB 17.8 gm/dL (13.0-17.5); Lymphocytes # (A) 1.3 k/uL (1.0-4.8); Lymphocytes % (A) 17 %; MCH 29.9 pg (25.0-35.0); MCHC 33.5 g/dL (31.0-37.0); MCV 89.3 fL (80.0-100.0); Mean Platelet Volume 7.4; Monocytes # (A) 0.4 k/uL (0-1.0); Monocytes % (A) 5 %; Neutrophils # (A) 5.9 k/uL (1.3-7.7); Neutrophils % (A) 75 %; Platelet Count 292 k/uL (150-450); RBC 5.97 m/uL (4.30-5.90); RDW 13.3 % (11.5-15.5); WBC 7.9 k/uL (3.8-10.6)
[2024-09-18 12:28] LABS: ALT 39 U/L (4-49); AST 27 U/L (17-59); African American GFR (CKD) >90 (>60 ml/min/1.73 sqM); Albumin 4.5 g/dL (3.5-5.0); Alkaline Phosphatase 49 U/L (38-126); Anion Gap 10 mmol/L; Blood Urea Nitrogen 15 mg/dL (9-20); Calcium 9.5 mg/dL (8.4-10.2); Carbon Dioxide 26 mmol/L (22-30); Chloride 100 mmol/L (98-107); Glucose 92 mg/dL (74-99); Non-African American GFR(CKD) >90 (>60 ml/min/1.73 sqM); Potassium 4.3 mmol/L (3.5-5.1); Sodium 136 mmol/L (137-145); Total Protein 7.2 g/dL (6.3-8.2)
[2024-09-18 13:02] VITALS: BP 132/83; PULSE 88
== END 2024-09-18 13:01 | disposition home or self-care (01) ==
LOC: EC 11:14
DX: F41.9 Anxiety disorder, unspecified (principal); R20.2 Paresthesia of skin; I10 Essential (primary) hypertension; Z88.0 Allergy status to penicillin
CPT/HCPCS: 36415; 80053; 85025; 93005; 96360; 99284

== ENCOUNTER 2024-12-21 22:00 | Emergency (ER) | payer BC ==
--- NOTE | 2024-12-21 22:20 | ED ---
General Adult HPI - General Chief complaint: Extremity Injury, Upper Stated complaint: Clavicle injury Time Seen by Provider: 12/21/24 22:16 Source: patient, RN notes reviewed Mode of arrival: ambulatory Limitations: no limitations - History of Present Illness Onset/Timin -: hour(s) Location: left, upper extremity Severity scale (1-10): 6 Consistency: constant Improves with: immobilization Worsens with: movement Associated Symptoms: denies other symptoms Treatments Prior to Arrival: none - Related Data Home Medications Medication Instructions Recorded Confirmed amLODIPine [Norvasc] 5 mg PO DAILY 09/18/24 09/18/24 Previous Rx's Medication Instructions Recorded Ibuprofen [Motrin] 800 mg PO Q8H PRN #30 tab 09/07/24 Ibuprofen [Motrin] 800 mg PO Q8HR PRN #30 tab 12/21/24 Allergies Allergy/AdvReac Type Severity Reaction Status Date / Time Penicillins Allergy Unknown Verified 12/21/24 22:03 Childhood Review of Systems ROS Statement: Those systems with pertinent positive or pertinent negative responses have been documented in the HPI. ROS Other: All systems not noted in ROS Statement are negative. Past Medical History Past Medical History: Hyperlipidemia, Hypertension History of Any Multi-Drug Resistant Organisms: None Reported Past Surgical History: Tonsillectomy Past Psychological History: No Psychological Hx Reported Smoking Status: Never smoker Past Alcohol Use History: None Reported Past Drug Use History: None Reported General Exam Limitations: no limitations General appearance: alert, in no apparent distress Head exam: Present: atraumatic, normocephalic, normal inspection Eye exam: Present: normal appearance, PERRL, EOMI. Absent: scleral icterus, conjunctival injection, periorbital swelling ENT exam: Present: normal exam, mucous membranes moist Neck exam: Present: normal inspection. Absent: tenderness, meningismus, lymphadenopathy Respiratory exam: Present: normal lung sounds bilaterally. Absent: respiratory distress, wheezes, rales, rhonchi, stridor Cardiovascular Exam: Present: regular rate, normal rhythm, normal heart sounds. Absent: systolic murmur, diastolic murmur, rubs, gallop, clicks GI/Abdominal exam: Present: soft, normal bowel sounds. Absent: distended, tenderness, guarding, rebound, rigid Extremities exam: Present: full ROM, tenderness (Positive left distal clavicle point TTP with possible palpable deficit. No tenting or open wound), normal capillary refill, other (LUE distal neurovascular and motor function intact. Radial pulse +2, capillary refill less than 2 seconds). Absent: pedal edema, joint swelling, calf tenderness Back exam: Present: normal inspection Neurological exam: Present: alert, oriented X3, CN II-XII intact Psychiatric exam: Present: normal affect, normal mood Skin exam: Present: warm, dry, intact, normal color. Absent: rash Course Vital Signs 12/21/24 22:00 Temperature 98 F Pulse Rate 59 L Respiratory 18 Rate Blood Pressure 182/104 O2 Sat by Pulse 100 Oximetry Medical Decision Making - Medical Decision Making Was pt. sent in by a medical professional or institution (, PA, MOTOR GRADER ROUGH GRADE, urgent care, hospital, or fpc...) When possible be specific @ -[No] Did you speak to anyone other than the patient for history (EMS, parent, family, police, friend...)? What history was obtained from this source @ -[No] Did you review nursing and triage notes (agree or disagree)? Why? @ -[I reviewed and agree with nursing and triage notes] Were old charts reviewed (outside hosp., previous admission, EMS record, old EKG, old radiological studies, urgent care reports/EKG's, fpc records)? Report findings @ -[No old charts were reviewed] Differential Diagnosis (chest pain, altered mental status, abdominal pain women, abdominal pain men, vaginal bleeding, weakness, fever, dyspnea, syncope, headache, dizziness, GI bleed, back pain, seizure, CVA, palpatations, mental health, musculoskeletal)? @ -Differential Musculoskeletal Muscular strain, contusion, ligament sprain, fracture, arthritis, septic arthritis, bursitis, cellulitis, muscle spasm, nerve compression, DVT, arterial occlusion, herpes zoster, electrolyte abnormality, tumor.... This is not meant to be in all inclusive list EKG interpreted by me (3pts min.). @ -Not done X-rays interpreted by me (1pt min.). @ -[None done] CT interpreted by me (1pt min.). @ -[None done] U/S interpreted by me (1pt. min.). @ -[None done] What testing was considered but not performed or refused? (CT, X-rays, U/S, labs)? Why? @ -[None] What meds were considered but not given or refused? Why? @ -[None] Did you discuss the management of the patient with other professionals (professionals i.e. , PA, MOTOR GRADER [employer] GRADE, lab, RT, psych nurse, manager social, cafeteria worker, teacher, aboriginal home school liaison officer, case monitor)? Give summary @ -[No] Was smoking cessation discussed for >3mins.? @ -[No] Was critical care preformed (if so, how long)? @ -[No] Were there social determinants of health that impacted care today? How? (Homelessness, low income, unemployed, alcoholism, drug addiction, transportation, low edu. Level, literacy, decrease access to med. care, skilled nursing, rehab)? @ -[No] Was there de-escalation of care discussed even if they declined (Discuss DNR or withdrawal of care, Hospice)? DNR status @ -[No] What co-morbidities impacted this encounter? (DM, HTN, Smoking, COPD, CAD, Cancer, CVA, ARF, Chemo, Hep., AIDS, mental health diagnosis, sleep apnea, morbid obesity)? @ -[None] Was patient admitted / discharged? Hospital course, mention meds given and route, prescriptions, significant lab abnormalities, going to OR and other pertinent info. @ -[hospital course] Undiagnosed new problem with uncertain prognosis? @ -[No] Drug Therapy requiring intensive monitoring for toxicity (Heparin, Nitro, Insulin, Cardizem)? @ -[No] Were any procedures done? @ -[No] Diagnosis/symptom? @ -[default] Acute, or Chronic, or Acute on Chronic? @ -Acute Uncomplicated (without systemic symptoms) or Complicated (systemic symptoms)? @ -Uncomplicated Side effects of treatment? @ -[No] Exacerbation, Progression, or Severe Exacerbation? @ -[No] Poses a threat to life or bodily function? How? (Chest pain, USA, [place], pneumonia, PE, COPD, DKA, ARF, appy, cholecystitis, CVA, Diverticulitis, Homicidal, Suicidal, threat to staff... and all critical care pts) @ -[No] Disposition Clinical Impression: Acromioclavicular joint separation Disposition: HOME SELF-CARE Condition: Fair Instructions (If sedation given, give patient instructions): Acromioclavicular Separation (ED) Additional Instructions: Apply cold compress to affected area for 10 minutes up to 4 times daily. Alternate Tylenol/Motrin every 4 hours for pain. Follow-up with PCP/orthopedics for ongoing management of injury. Prescriptions: Ibuprofen [Motrin] 800 mg PO Q8HR PRN #30 tab PRN Reason: Pain Is patient prescribed a controlled substance at d/c from ED?: No Referrals: Basim Chinchilla MD [Primary Care Provider] - 1-2 days [facility] [Provider Group] - 1-2 days Time of Disposition: 22:45
[2024-12-21 23:19] VITALS: BP 158/88; PULSE 63; RESP 15; TEMP 97.8
--- NOTE | 2024-12-22 00:11 | XR ---
EXAM: XR Left Clavicle Complete, 2 Views CLINICAL HISTORY: Fall with "snap", distal clavicle TTP TECHNIQUE: Frontal and lordotic views of the left clavicle. COMPARISON: No relevant prior studies available. FINDINGS: Bones/joints: No fracture or dislocation. Soft tissues: Unremarkable. IMPRESSION: Normal left clavicle x-rays.
== END 2024-12-21 23:17 | disposition home or self-care (01) ==
LOC: EC 22:00
DX: S43.109A Unspecified dislocation of unspecified acromioclavicular joint, initial encounter (principal); Z88.0 Allergy status to penicillin; X58.XXXA Exposure to other specified factors, initial encounter
CPT/HCPCS: 99283